=== PATIENT | female | born 1995 | race African-American/Black ===

== ENCOUNTER 2017-04-27 03:20 | Emergency (ER) | payer MEDICAID ==
[~2017-04-27] VITALS: Ht 162.6 cm; Wt 84.6 kg
[2017-04-27 05:56] VITALS: BP 124/87
[2017-04-27] MEDS ORDERED: FLUORESCEIN SODIUM 1MG/STRIP RIGHTEYE ONE (07:15)
[2017-04-27] MEDS ORDERED: TETRACAINE 0.5% OPHTH DROPS 4ML RIGHTEYE ONE (07:15)
[2017-04-27] MEDS ORDERED: TOBRAMYCIN 0.3% OPHTH DROPS 5ML OP SCH (07:30)
[2017-04-27] MEDS ORDERED: IBUPROFEN 800MG TABLET PO ONE (08:00)
== END 2017-04-27 08:19 | disposition home or self-care (01) ==
LOC: ER 03:20
DX: H18.822 Corneal disorder due to contact lens, left eye (principal); F17.200 Nicotine dependence, unspecified, uncomplicated
CPT/HCPCS: 81025; 99284

== ENCOUNTER 2019-06-17 13:46 | Emergency (ER) | payer MEDICAID, OTHER ==
[~2019-06-17] VITALS: Ht 162.6 cm; Wt 80.0 kg
[2019-06-17 13:48] VITALS: BP 132/72
[2019-06-17] MEDS ORDERED: FLUORESCEIN SODIUM 1MG/STRIP LEFTEYE ONE (16:00)
[2019-06-17] MEDS ORDERED: TETRACAINE 0.5% OPHTH DROPS 4ML LEFTEYE ONE (16:00)
== END 2019-06-17 17:04 | disposition home or self-care (01) ==
LOC: ER 13:46
DX: H10.022 Other mucopurulent conjunctivitis, left eye (principal)
CPT/HCPCS: 81025; 99283